=== PATIENT | male | born 1965 | race Caucasian/White ===

== ENCOUNTER 2016-10-30 14:44 | Emergency (ER) | payer OTHER ==
[2016-10-30 16:14] LABS: BILIRUBIN NEGATIVE (NEGATIVE); BLOOD NEGATIVE Ery/uL (NEGATIVE); CLARITY CLEAR (CLEAR); COLOR YELLOW (YELLOW); GLUCOSE (U) NORMAL (NORMAL); KETONE (U) NEGATIVE (NEGATIVE); LEUKOCYTES NEGATIVE Leu/uL (NEGATIVE); NITRITE NEGATIVE (NEGATIVE); PROTEIN NEGATIVE (NEGATIVE); pH 6.5 (5.0-9.0)
== END 2016-10-30 17:04 | disposition home or self-care (01) ==
LOC: FER 14:44
PROVIDERS: Nurse Practitioner Family
DX: M54.32 Sciatica, left side (principal); Z88.1 Allergy status to other antibiotic agents
CPT/HCPCS: 81003; J1100